=== PATIENT | male | born 1980 | race Caucasian/White ===

== ENCOUNTER 2017-05-10 15:03 | Emergency (ER) | payer OTHER ==
[~2017-05-10] VITALS: Ht 170.2 cm; Wt 73.0 kg
[2017-05-10] MEDS ORDERED: LORAZEPAM 2 MG INJ IM STA (15:05)
[2017-05-10] MEDS ORDERED: HALOPERIDOL 5 MG INJ IM STA (15:05)
[2017-05-10 15:11] VITALS: Ht 170.2 cm; Wt 73.0 kg
--- NOTE | 2017-05-10 19:16 | ERD ---
ER Documentation Chief Complaint Chief Complaint PT BIB RA who presents with erratic behavior after Meth use around noon. HPI Patient is a 36-year-old male with no medical problems who presents with altered mental status. Please note the history and physical exam is limited secondary to the patient's mental status. The patient was brought in by ambulance. Please call 911 because he appeared to be under the influence of something. He admits to using methamphetamines this morning. Upon review of old medical records this is the patient's third visit to the ER since 2013. ROS All systems reviewed and are negative except as per history of present illness. Medications Home Meds No Active Prescriptions or Reported Meds Allergies Allergies: Coded Allergies: No Known Allergy (Unverified , 09/27/13) PMhx/Soc History of Surgery: No Anesthesia Reaction: No Hx Neurological Disorder: No Hx Respiratory Disorders: No Hx Cardiac Disorders: No Hx Psychiatric Problems: No Hx Miscellaneous Medical Probl: No Hx Alcohol Use: Yes Hx Substance Use: Yes Hx Tobacco Use: Yes FmHx Family History: diabetes Physical Exam Vitals Vital Signs Date Time Temp Pulse Resp B/P Pulse Ox O2 Delivery O2 Flow Rate FiO2 05/10/17 15:11 98.4 149 22 138/68 99 Physical Exam Const: Patient is severely agitated and picking at his body and very paranoid Head: Atraumatic Eyes: Normal Conjunctiva ENT: Normal External Ears, Nose and Mouth. Neck: Full range of motion..~ No meningismus. Resp: Clear to auscultation bilaterally Cardio: Regular rate and rhythm, no murmurs Abd: Soft, non tender, non distended. Normal bowel sounds Skin: No petechiae or rashes Back: No midline or flank tenderness Ext: No cyanosis, or edema Neur: Awake and moves all 4 extremities Psych: Agitated and picking at his body and appears paranoid Result Diagram: 05/10/17 1520 05/10/17 1520 Results 24 hrs Laboratory Tests Test 05/10/17 15:20 White Blood Count 11.110^3/ul Red Blood Count 4.6110^6/ul Hemoglobin 13.7g/dl Hematocrit 40.1% Mean Corpuscular Volume 87.0fl Mean Corpuscular Hemoglobin 29.7pg Mean Corpuscular Hemoglobin Concent 34.2g/dl Red Cell Distribution Width 11.8% Platelet Count 50790^3/UL Mean Platelet Volume 10.0fl Neutrophils % 81.8% Lymphocytes % 7.4% Monocytes % 10.1% Eosinophils % 0.1% Basophils % 0.2% Nucleated Red Blood Cells % 0.0/100WBC Neutrophils # 9.110^3/ul Lymphocytes # 0.810^3/ul Monocytes # 1.110^3/ul Eosinophils # 0.010^3/ul Basophils # 0.010^3/ul Nucleated Red Blood Cells # 0.010^3/ul Sodium Level 147mmol/L Potassium Level 3.2mmol/L Chloride Level 107mmol/L Carbon Dioxide Level 25mmol/L Anion Gap 18 Blood Urea Nitrogen 22mg/dl Creatinine 1.23mg/dl Glucose Level 121mg/dl Calcium Level 9.3mg/dl Total Bilirubin 0.8mg/dl Direct Bilirubin 0.00mg/dl Indirect Bilirubin 0.8mg/dl Aspartate Amino Transf (AST/SGOT) 101IU/L Alanine Aminotransferase (ALT/SGPT) 58IU/L Alkaline Phosphatase 93IU/L Total Protein 8.2g/dl Albumin 4.8g/dl Globulin 3.40g/dl Albumin/Globulin Ratio 1.41 Salicylates Level < 1.0mg/dl Acetaminophen Level < 10.0ug/ml Ethyl Alcohol Level < 10.0mg/dl Current Medications Medications (Trade) Dose Ordered Sig/Raza Route PRN Reason Start Time Stop Time Status Last Admin Dose Admin Lorazepam (Ativan) 2 mg ONCE STAT IM 05/10/17 15:05 05/10/17 15:08 DC 05/10/17 15:08 Haloperidol (Haldol) 10 mg ONCE STAT IM 05/10/17 15:05 05/10/17 15:08 DC 05/10/17 15:08 Procedures/MDM EKG read by me: Rate/Rhythm: Regular rate and rhythm at a normal rate Intervals: Normal Impression: No evidence of ischemia or arrhythmia Smoking Cessation Therapy: Pt. was lectured for greater than 3 minutes on the health risks of continued smoking and the benefits of cessation. Patient is a 36-year-old male who appears to be under the use of methamphetamines. The patient was given Haldol and Ativan for sedation to protect himself and to protect our staff. I do not want him leaving at this point as he would not be stable to manage himself in the community. The patient will be sedated for a number of hours and will need reevaluation once he is awake. At that point if he is coherent and able to care for himself he could likely be discharged as long as he does not have an acute psychiatric emergency. The patient has had multiple airway exams and has not had any signs of airway decompensation. Will be signed out to the oncoming physician. Critical Care: Time: 35 minutes excluding all billable procedures. Treatments/Evaluations: Close monitoring and treatment of unstable vital signs, cardiorespiratory, and neurologic status, while maintaining tight balance of fluid, respiratory, and cardiac interventions. Departure Diagnosis: Primary Impression: Drug use Additional Impressions: Mental status alteration Altered mental status type: unspecified Qualified Code: R41.82 - Altered mental status, unspecified altered mental status type Hypokalemia Condition: Fair Patient Instructions: Drug Abuse Referrals: [facility] YOU HAVE RECEIVED A MEDICAL SCREENING EXAM AND THE RESULTS INDICATE THAT YOU DO NOT HAVE A CONDITION THAT REQUIRES URGENT TREATMENT IN THE EMERGENCY DEPARTMENT. FURTHER EVALUATION AND TREATMENT OF YOUR CONDITION CAN WAIT UNTIL YOU ARE SEEN IN YOUR DOCTORS OFFICE WITHIN THE NEXT 1-2 DAYS. IT IS YOUR RESPONSIBILITY TO MAKE AN APPOINTMENT FOR FOLOW-UP CARE. IF YOU HAVE A PRIMARY DOCTOR --you should call your primary doctor and schedule an appointment IF YOU DO NOT HAVE A PRIMARY DOCTOR YOU CAN CALL OUR PHYSICIAN REFERRAL HOTLINE AT IF YOU CAN NOT AFFORD TO SEE A PHYSICIAN YOU CAN CHOSE FROM THE FOLLOWING [facility] CLINICS [facility] [address] [facility]. [facility] [address] [facility] [facility] [address] [facility] [facility] [address] [facility]. [facility] [address] [facility]. [facility]. [address] Additional Instructions: Call your primary care doctor TOMORROW for an appointment during the next 1-2 days.See the doctor sooner or return here if your condition worsens before your appointment time. JOHN KUMAR MD May 10, 2017 19:19
--- NOTE | 2017-05-10 19:16 | ERD ---
ER Documentation Chief Complaint Chief Complaint PT BIB RA who presents with erratic behavior after Meth use around noon. HPI Patient is a 36-year-old male with no medical problems who presents with altered mental status. Please note the history and physical exam is limited secondary to the patient's mental status. The patient was brought in by ambulance. Please call 911 because he appeared to be under the influence of something. He admits to using methamphetamines this morning. Upon review of old medical records this is the patient's third visit to the ER since 2013. ROS All systems reviewed and are negative except as per history of present illness. Medications Home Meds No Active Prescriptions or Reported Meds Allergies Allergies: Coded Allergies: No Known Allergy (Unverified , 09/27/13) PMhx/Soc History of Surgery: No Anesthesia Reaction: No Hx Neurological Disorder: No Hx Respiratory Disorders: No Hx Cardiac Disorders: No Hx Psychiatric Problems: No Hx Miscellaneous Medical Probl: No Hx Alcohol Use: Yes Hx Substance Use: Yes Hx Tobacco Use: Yes FmHx Family History: diabetes Physical Exam Vitals Vital Signs Date Time Temp Pulse Resp B/P Pulse Ox O2 Delivery O2 Flow Rate FiO2 05/10/17 15:11 98.4 149 22 138/68 99 Physical Exam Const: Patient is severely agitated and picking at his body and very paranoid Head: Atraumatic Eyes: Normal Conjunctiva ENT: Normal External Ears, Nose and Mouth. Neck: Full range of motion..~ No meningismus. Resp: Clear to auscultation bilaterally Cardio: Regular rate and rhythm, no murmurs Abd: Soft, non tender, non distended. Normal bowel sounds Skin: No petechiae or rashes Back: No midline or flank tenderness Ext: No cyanosis, or edema Neur: Awake and moves all 4 extremities Psych: Agitated and picking at his body and appears paranoid Result Diagram: 05/10/17 1520 05/10/17 1520 Results 24 hrs Laboratory Tests Test 05/10/17 15:20 White Blood Count 11.110^3/ul Red Blood Count 4.6110^6/ul Hemoglobin 13.7g/dl Hematocrit 40.1% Mean Corpuscular Volume 87.0fl Mean Corpuscular Hemoglobin 29.7pg Mean Corpuscular Hemoglobin Concent 34.2g/dl Red Cell Distribution Width 11.8% Platelet Count 04495^3/UL Mean Platelet Volume 10.0fl Neutrophils % 81.8% Lymphocytes % 7.4% Monocytes % 10.1% Eosinophils % 0.1% Basophils % 0.2% Nucleated Red Blood Cells % 0.0/100WBC Neutrophils # 9.110^3/ul Lymphocytes # 0.810^3/ul Monocytes # 1.110^3/ul Eosinophils # 0.010^3/ul Basophils # 0.010^3/ul Nucleated Red Blood Cells # 0.010^3/ul Sodium Level 147mmol/L Potassium Level 3.2mmol/L Chloride Level 107mmol/L Carbon Dioxide Level 25mmol/L Anion Gap 18 Blood Urea Nitrogen 22mg/dl Creatinine 1.23mg/dl Glucose Level 121mg/dl Calcium Level 9.3mg/dl Total Bilirubin 0.8mg/dl Direct Bilirubin 0.00mg/dl Indirect Bilirubin 0.8mg/dl Aspartate Amino Transf (AST/SGOT) 101IU/L Alanine Aminotransferase (ALT/SGPT) 58IU/L Alkaline Phosphatase 93IU/L Total Protein 8.2g/dl Albumin 4.8g/dl Globulin 3.40g/dl Albumin/Globulin Ratio 1.41 Salicylates Level < 1.0mg/dl Acetaminophen Level < 10.0ug/ml Ethyl Alcohol Level < 10.0mg/dl Current Medications Medications (Trade) Dose Ordered Sig/Raza Route PRN Reason Start Time Stop Time Status Last Admin Dose Admin Lorazepam (Ativan) 2 mg ONCE STAT IM 05/10/17 15:05 05/10/17 15:08 DC 05/10/17 15:08 Haloperidol (Haldol) 10 mg ONCE STAT IM 05/10/17 15:05 05/10/17 15:08 DC 05/10/17 15:08 Procedures/MDM EKG read by me: Rate/Rhythm: Regular rate and rhythm at a normal rate Intervals: Normal Impression: No evidence of ischemia or arrhythmia Smoking Cessation Therapy: Pt. was lectured for greater than 3 minutes on the health risks of continued smoking and the benefits of cessation. Patient is a 36-year-old male who appears to be under the use of methamphetamines. The patient was given Haldol and Ativan for sedation to protect himself and to protect our staff. I do not want him leaving at this point as he would not be stable to manage himself in the community. The patient will be sedated for a number of hours and will need reevaluation once he is awake. At that point if he is coherent and able to care for himself he could likely be discharged as long as he does not have an acute psychiatric emergency. The patient has had multiple airway exams and has not had any signs of airway decompensation. Will be signed out to the oncoming physician. Critical Care: Time: 35 minutes excluding all billable procedures. Treatments/Evaluations: Close monitoring and treatment of unstable vital signs, cardiorespiratory, and neurologic status, while maintaining tight balance of fluid, respiratory, and cardiac interventions. Departure Diagnosis: Primary Impression: Drug use Additional Impressions: Mental status alteration Altered mental status type: unspecified Qualified Code: R41.82 - Altered mental status, unspecified altered mental status type Hypokalemia Condition: Fair Patient Instructions: Drug Abuse Referrals: [facility] YOU HAVE RECEIVED A MEDICAL SCREENING EXAM AND THE RESULTS INDICATE THAT YOU DO NOT HAVE A CONDITION THAT REQUIRES URGENT TREATMENT IN THE EMERGENCY DEPARTMENT. FURTHER EVALUATION AND TREATMENT OF YOUR CONDITION CAN WAIT UNTIL YOU ARE SEEN IN YOUR DOCTORS OFFICE WITHIN THE NEXT 1-2 DAYS. IT IS YOUR RESPONSIBILITY TO MAKE AN APPOINTMENT FOR FOLOW-UP CARE. IF YOU HAVE A PRIMARY DOCTOR --you should call your primary doctor and schedule an appointment IF YOU DO NOT HAVE A PRIMARY DOCTOR YOU CAN CALL OUR PHYSICIAN REFERRAL HOTLINE AT IF YOU CAN NOT AFFORD TO SEE A PHYSICIAN YOU CAN CHOSE FROM THE FOLLOWING [facility] CLINICS [facility] [address] [facility]. [facility] [address] [facility]. [facility] [address] [facility]. [facility] [address] [facility]. [facility] [address] [facility]. [facility]. [address] Additional Instructions: Call your primary care doctor TOMORROW for an appointment during the next 1-2 days.See the doctor sooner or return here if your condition worsens before your appointment time. JOHN KUMAR MD May 10, 2017 19:19
--- NOTE | 2017-05-10 19:16 | ERD ---
ER Documentation Chief Complaint Chief Complaint PT BIB RA who presents with erratic behavior after Meth use around noon. HPI Patient is a 36-year-old male with no medical problems who presents with altered mental status. Please note the history and physical exam is limited secondary to the patient's mental status. The patient was brought in by ambulance. Please call 911 because he appeared to be under the influence of something. He admits to using methamphetamines this morning. Upon review of old medical records this is the patient's third visit to the ER since 2013. ROS All systems reviewed and are negative except as per history of present illness. Medications Home Meds No Active Prescriptions or Reported Meds Allergies Allergies: Coded Allergies: No Known Allergy (Unverified , 09/27/13) PMhx/Soc History of Surgery: No Anesthesia Reaction: No Hx Neurological Disorder: No Hx Respiratory Disorders: No Hx Cardiac Disorders: No Hx Psychiatric Problems: No Hx Miscellaneous Medical Probl: No Hx Alcohol Use: Yes Hx Substance Use: Yes Hx Tobacco Use: Yes FmHx Family History: diabetes Physical Exam Vitals Vital Signs Date Time Temp Pulse Resp B/P Pulse Ox O2 Delivery O2 Flow Rate FiO2 05/10/17 15:11 98.4 149 22 138/68 99 Physical Exam Const: Patient is severely agitated and picking at his body and very paranoid Head: Atraumatic Eyes: Normal Conjunctiva ENT: Normal External Ears, Nose and Mouth. Neck: Full range of motion..~ No meningismus. Resp: Clear to auscultation bilaterally Cardio: Regular rate and rhythm, no murmurs Abd: Soft, non tender, non distended. Normal bowel sounds Skin: No petechiae or rashes Back: No midline or flank tenderness Ext: No cyanosis, or edema Neur: Awake and moves all 4 extremities Psych: Agitated and picking at his body and appears paranoid Result Diagram: 05/10/17 1520 05/10/17 1520 Results 24 hrs Laboratory Tests Test 05/10/17 15:20 White Blood Count 11.110^3/ul Red Blood Count 4.6110^6/ul Hemoglobin 13.7g/dl Hematocrit 40.1% Mean Corpuscular Volume 87.0fl Mean Corpuscular Hemoglobin 29.7pg Mean Corpuscular Hemoglobin Concent 34.2g/dl Red Cell Distribution Width 11.8% Platelet Count 27896^3/UL Mean Platelet Volume 10.0fl Neutrophils % 81.8% Lymphocytes % 7.4% Monocytes % 10.1% Eosinophils % 0.1% Basophils % 0.2% Nucleated Red Blood Cells % 0.0/100WBC Neutrophils # 9.110^3/ul Lymphocytes # 0.810^3/ul Monocytes # 1.110^3/ul Eosinophils # 0.010^3/ul Basophils # 0.010^3/ul Nucleated Red Blood Cells # 0.010^3/ul Sodium Level 147mmol/L Potassium Level 3.2mmol/L Chloride Level 107mmol/L Carbon Dioxide Level 25mmol/L Anion Gap 18 Blood Urea Nitrogen 22mg/dl Creatinine 1.23mg/dl Glucose Level 121mg/dl Calcium Level 9.3mg/dl Total Bilirubin 0.8mg/dl Direct Bilirubin 0.00mg/dl Indirect Bilirubin 0.8mg/dl Aspartate Amino Transf (AST/SGOT) 101IU/L Alanine Aminotransferase (ALT/SGPT) 58IU/L Alkaline Phosphatase 93IU/L Total Protein 8.2g/dl Albumin 4.8g/dl Globulin 3.40g/dl Albumin/Globulin Ratio 1.41 Salicylates Level < 1.0mg/dl Acetaminophen Level < 10.0ug/ml Ethyl Alcohol Level < 10.0mg/dl Current Medications Medications (Trade) Dose Ordered Sig/Raza Route PRN Reason Start Time Stop Time Status Last Admin Dose Admin Lorazepam (Ativan) 2 mg ONCE STAT IM 05/10/17 15:05 05/10/17 15:08 DC 05/10/17 15:08 Haloperidol (Haldol) 10 mg ONCE STAT IM 05/10/17 15:05 05/10/17 15:08 DC 05/10/17 15:08 Procedures/MDM EKG read by me: Rate/Rhythm: Regular rate and rhythm at a normal rate Intervals: Normal Impression: No evidence of ischemia or arrhythmia Smoking Cessation Therapy: Pt. was lectured for greater than 3 minutes on the health risks of continued smoking and the benefits of cessation. Patient is a 36-year-old male who appears to be under the use of methamphetamines. The patient was given Haldol and Ativan for sedation to protect himself and to protect our staff. I do not want him leaving at this point as he would not be stable to manage himself in the community. The patient will be sedated for a number of hours and will need reevaluation once he is awake. At that point if he is coherent and able to care for himself he could likely be discharged as long as he does not have an acute psychiatric emergency. The patient has had multiple airway exams and has not had any signs of airway decompensation. Will be signed out to the oncoming physician. Critical Care: Time: 35 minutes excluding all billable procedures. Treatments/Evaluations: Close monitoring and treatment of unstable vital signs, cardiorespiratory, and neurologic status, while maintaining tight balance of fluid, respiratory, and cardiac interventions. Departure Diagnosis: Primary Impression: Drug use Additional Impressions: Mental status alteration Altered mental status type: unspecified Qualified Code: R41.82 - Altered mental status, unspecified altered mental status type Hypokalemia Condition: Fair Patient Instructions: Drug Abuse Referrals: [facility] YOU HAVE RECEIVED A MEDICAL SCREENING EXAM AND THE RESULTS INDICATE THAT YOU DO NOT HAVE A CONDITION THAT REQUIRES URGENT TREATMENT IN THE EMERGENCY DEPARTMENT. FURTHER EVALUATION AND TREATMENT OF YOUR CONDITION CAN WAIT UNTIL YOU ARE SEEN IN YOUR DOCTORS OFFICE WITHIN THE NEXT 1-2 DAYS. IT IS YOUR RESPONSIBILITY TO MAKE AN APPOINTMENT FOR FOLOW-UP CARE. IF YOU HAVE A PRIMARY DOCTOR --you should call your primary doctor and schedule an appointment IF YOU DO NOT HAVE A PRIMARY DOCTOR YOU CAN CALL OUR PHYSICIAN REFERRAL HOTLINE AT IF YOU CAN NOT AFFORD TO SEE A PHYSICIAN YOU CAN CHOSE FROM THE FOLLOWING [facility] CLINICS [facility] [address] [facility]. [facility] [address] [facility] [address] [facility]. [facility] [address] [facility] [facility] [address] [facility]. [facility]. [address] Additional Instructions: Call your primary care doctor TOMORROW for an appointment during the next 1-2 days.See the doctor sooner or return here if your condition worsens before your appointment time. JOHN KUMAR MD May 10, 2017 19:19
[2017-05-10 23:30] VITALS: BP 122/78; PULSE 92; RESP 15
--- NOTE | 2017-05-10 23:35 | EN ---
Date/Time of Note Date/Time of Note DATE: 05/10/17 TIME: 23:34 ER Progress Note Observation Note: Time: Four hours Family Hx: No Hypertension Evaluation: Multiple exams showed improving symptoms and no evidence of psychosis. Patient has been allowed to "sober". Patient was originally very combative secondary to methamphetamine abuse. After sedation and tincture of time, patient is at mental baseline and is been advised of using drugs to which she understands. Patient is alert and oriented 4 with goal oriented speech and good decision-making capacity with ability to negotiate the community. Patient will be discharged home. Diagnosis drug abuse KAM ROACH May 10, 2017 23:35
== END 2017-05-10 23:35 | disposition home or self-care (01) ==
LOC: E/R 15:03
DX: F15.10 Other stimulant abuse, uncomplicated (principal); E87.6 Hypokalemia; Z87.891 Personal history of nicotine dependence
CPT/HCPCS: 80053; 80306; 80307; 81001; 85025; 93005; 96374; 96375; Z7502